=== PATIENT | female | born 1950 | race African-American/Black ===

== ENCOUNTER 2017-04-05 18:02 | Emergency (ER) | payer MEDICARE, MEDICAID ==
[~2017-04-05] VITALS: Ht 162.6 cm; Wt 65.0 kg
[~2017-04-05 18:02] MED LIST: AMLO10TA80 PO; CINA30 PO; CLOP75TA33 PO; LOSA100T14 PO; OXYC15TA88 PO; SEVE800T8 PO; SIMV20TA6 PO
[2017-04-05 19:23] LABS: BASOPHILS % 0.5 % (0.0-2.0); EOSINOPHILS % 1.4 % (0.0-5.0); HEMATOCRIT. 26.6 % (36.0-48.0); HEMOGLOBIN. 8.9 g/dL (12.0-16.0); LYMPHOCYTES % 62.1 % (20.0-50.0); MEAN CORPUSCULAR HEMOGLOBIN 29.6 pg (28.0-32.0); MEAN CORPUSCULAR VOLUME 88.7 fL (81.0-99.0); MEAN PLATELET VOLUME 10.1 fl (7.4-10.4); MONOCYTES % 5.1 % (2.0-8.0); NEUTROPHILS % 30.9 % (40.0-76.0); PLATELET 165 x1000/uL (130-400); RED CELL DISTRIBUTION WIDTH 15.2 % (11.6-14.6)
[2017-04-05 19:28] LABS: CHLORIDE 102 mEq/L (98-107)
[2017-04-05 19:29] LABS: INR 1.1; PROTHROMBIN TIME 11.7 sec
[2017-04-05 19:32] LABS: CARBON DIOXIDE 29 mEq/L (21-32)
[2017-04-05] MEDS ORDERED: ONDANSETRON 4MG ODT PO ONE (22:15)
[2017-04-05 23:21] VITALS: BP 99/65
== END 2017-04-05 23:30 | disposition home or self-care (01) ==
LOC: ER 18:13
DX: T82.838A Hemorrhage due to vascular prosthetic devices, implants and grafts, initial encounter (principal); I13.11 Hypertensive heart and chronic kidney disease without heart failure, with stage 5 chronic kidney disease, or end stage renal disease; N18.6 End stage renal disease; I51.9 Heart disease, unspecified; Z86.73 Personal history of transient ischemic attack (TIA), and cerebral infarction without residual deficits; Z99.2 Dependence on renal dialysis; Z79.01 Long term (current) use of anticoagulants
CPT/HCPCS: 36415; 80053; 85025; 85610; 99284; Q0162

== ENCOUNTER 2017-05-23 08:14 | Inpatient (IN) | payer MEDICARE, MEDICAID ==
[2017-05-23] VITALS (24 sets, daily range): BP systolic 51–192; BP diastolic 20–105
[~2017-05-23] VITALS: Ht 165.1 cm; Wt 80.8 kg
[2017-05-23] MEDS ORDERED: HYDR-523 PO (09:08)
[2017-05-23] MEDS ORDERED: ROSU10TA PO (09:08)
[2017-05-23] MEDS ORDERED: AMLO10TA80 PO (09:08)
[2017-05-23 09:27] LABS: HEMATOCRIT 35.3 % (36.0-48.0); HEMOGLOBIN 11.4 g/dL (12.0-16.0)
[2017-05-23] MEDS ORDERED: MIDAZOLAM HCL 2 MG/2 ML VIAL ONE ×3 (11:28→12:22)
[2017-05-23] MEDS ORDERED: HYDRALAZINE 20MG/ML VIAL ONE ×2 (11:28→12:31)
[2017-05-23] MEDS ORDERED: HYDROMORPHONE HCL/PF 2MG/ML (OR) ONE (11:45)
[2017-05-23] MEDS ORDERED: HEPARIN SODIUM 1,000 UNIT/1ML VIAL IV ONE ×2 (11:48→12:19)
[2017-05-23] MEDS ORDERED: IOVERSOL 240MG/ML 100ML BOTTLE IV ONE (11:53)
[2017-05-23] MEDS ORDERED: ASPIRIN 325MG TABLET ONE (12:15)
[2017-05-23] MEDS ORDERED: ACETAMINOPHEN 325MG TABLET PO PRN (12:15)
[2017-05-23] MEDS ORDERED: ATROPINE SULFATE 1MG/10ML SYR IV PRN (12:15)
[2017-05-23] MEDS ORDERED: CLOPIDOGREL 75MG TABLET ONE (12:16)
[2017-05-23] MEDS ORDERED: IOHEXOL-300 100 ML BOTTLE ONE (12:19)
[2017-05-23] MEDS ORDERED: LIDOCAINE HCL 1% 20ML VIAL (Pyxis) INJ ONE (12:20)
[2017-05-23] MEDS ORDERED: FENTANYL CITRATE/PF 50MCG/ML 2ML VIAL ONE (12:20)
[2017-05-23] MEDS: HYDROCODONE/ACETAMINOPHEN 5/325MG TABLET PO PRN (13:59)
[2017-05-23] MEDS: SEVELAMER CARBONATE 800 MG TABLET PO SCH (18:17)
[2017-05-23] MEDS ORDERED: CLONIDINE 0.1MG TABLET PO SCH (20:45)
[2017-05-23] MEDS ORDERED: ZOLPIDEM TARTRATE 5MG TABLET PO PRN (21:00)
[2017-05-23] MEDS: AMLODIPINE 5MG TABLET PO SCH (21:51)
[2017-05-23] MEDS ORDERED: CLONIDINE 0.1MG TABLET PO PRN (23:30)
[2017-05-24] VITALS (14 sets, daily range): BP systolic 119–159; BP diastolic 47–123
[2017-05-24] MEDS: HYDROCODONE/ACETAMINOPHEN 5/325MG TABLET PO PRN (01:47)
[2017-05-24 05:57] LABS: BASOPHILS % 0.8 % (0.0-2.0); EOSINOPHILS % 1.6 % (0.0-5.0); HEMATOCRIT. 30.5 % (36.0-48.0); HEMOGLOBIN. 10.1 g/dL (12.0-16.0); LYMPHOCYTES % 31.8 % (20.0-50.0); MEAN CORPUSCULAR HEMOGLOBIN 28.6 pg (28.0-32.0); MEAN CORPUSCULAR VOLUME 86.6 fL (81.0-99.0); MEAN PLATELET VOLUME 9.9 fl (7.4-10.4); NEUTROPHILS % 56.8 % (40.0-76.0); PLATELET 153 x1000/uL (130-400); RED BLOOD CELL COUNT 3.53 mill/uL (4.2-5.4); RED CELL DISTRIBUTION WIDTH 16.7 % (11.6-14.6)
[2017-05-24] MEDS ORDERED: OXYCODONE HCL 5MG TABLET PO PRN (06:30)
[2017-05-24] MEDS: AMLODIPINE 5MG TABLET PO SCH (08:15)
[2017-05-24] MEDS: SEVELAMER CARBONATE 800 MG TABLET PO SCH (08:15)
[2017-05-24] MEDS ORDERED: AMLODIPINE 5MG TABLET PO SCH (09:00)
[2017-05-24] MEDS ORDERED: ASPIRIN 81MG EC TABLET PO SCH (09:00)
[2017-05-24] MEDS ORDERED: CINACALCET HCL 30MG TABLET PO SCH (09:00)
[2017-05-24] MEDS ORDERED: CLOPIDOGREL 75MG TABLET PO SCH (09:00)
[2017-05-24] MEDS ORDERED: LOSARTAN POTASSIUM 100 MG TABLET PO SCH (09:00)
[2017-05-24] MEDS ORDERED: ATORVASTATIN CALCIUM 20MG TABLET PO SCH (21:00)
== END 2017-05-24 11:19 | disposition home or self-care (01) | DRG 252 ==
LOC: CCL 08:14 → 3WST 08:15
PROVIDERS: ADMIT Specialist; ATTEND Specialist
PROC: 047K3DZ Dilation of Right Femoral Artery with Intraluminal Device, Percutaneous Approach (ICD-10-PCS; principal; 2017-05-23)
DX: T82.858A Stenosis of other vascular prosthetic devices, implants and grafts, initial encounter (principal); N18.6 End stage renal disease; E11.22 Type 2 diabetes mellitus with diabetic chronic kidney disease; I69.954 Hemiplegia and hemiparesis following unspecified cerebrovascular disease affecting left non-dominant side; I13.11 Hypertensive heart and chronic kidney disease without heart failure, with stage 5 chronic kidney disease, or end stage renal disease; E11.51 Type 2 diabetes mellitus with diabetic peripheral angiopathy without gangrene; D64.9 Anemia, unspecified; I45.10 Unspecified right bundle-branch block; E78.5 Hyperlipidemia, unspecified; E11.319 Type 2 diabetes mellitus with unspecified diabetic retinopathy without macular edema; Z87.891 Personal history of nicotine dependence; Z95.2 Presence of prosthetic heart valve; Z99.2 Dependence on renal dialysis
CPT/HCPCS: 36415; 37226; 75710; 80048; 85014; 85018; 85025; 85347; C1725; C1760; C1769; C1893; C1894; J0360; J1170; J1644; J2250; J3010; J3490; Q9967